=== PATIENT | male | born 1990 | race Caucasian/White ===

== ENCOUNTER 2018-09-02 12:31 | Emergency (ER) | payer OTHER ==
[2018-09-02] MEDS ORDERED: TDAP ADULT 0.5 ML INJ (BOOSTRIX) IM ONE (14:30)
[2018-09-02] MEDS ORDERED: SKIN ADHESIVE (DERMABOND) 1 EACH TP ONE (14:43)
--- NOTE | 2018-09-02 14:48 | EDPHY ---
H & P Time Seen by Provider: 09/02/18 13:30 HPI/ROS: CHIEF COMPLAINT: Left 2nd digit finger laceration HISTORY OF PRESENT ILLNESS: 27-year-old male here with laceration to the flexor aspect of the left 2nd digit. Denies any numbness or loss of range of motion. He there is no drug or alcohol use involved. ROS As detailed in HPI Smoking Status: Never smoked Physical Exam: General: Alert and oriented. Nontoxic appearing. No acute distress HEENT: Pupils PERRLA. No oral lesions. Cardiopulmonary: Regular rate and rhythm. No lower extremity edema Skin: [place] warm and dry. 2 cm laceration to the distal phalanx of the left 2nd digit. No joint or tendon involvement. Muscle skeletal: Moving all 4 extremities. Equal strength in upper extremities and lower extremities. Ambulatory. Constitutional: Initial Vital Signs Temperature (C) 36.4 C 09/02/18 12:55 Heart Rate 86 09/02/18 12:55 Respiratory Rate 16 09/02/18 12:55 Blood Pressure 132/93 H 09/02/18 12:55 O2 Sat (%) 98 09/02/18 12:55 O2 Delivery Mode Room Air Allergies/Adverse Reactions: No Known Allergies Allergy (Unverified 09/02/18 12:57) Home Medications: Medication Instructions Recorded NK [No Known Home Meds] 09/02/18 Medical Decision Making Procedures: Procedure: Laceration repair. Verbal consent was obtained from the patient. The 1.5 cml aceration on the left 2nd digit was anesthetized in the usual fashion. The wound was irrigated, draped and explored to its base with a gloved finger. There were no deep structures involved. No tendon injury was identified. The wound was repaired with 4 5.0 horizontal mattress. The wound repair was well approximated. The procedure was performed by myself. ED Course/Re-evaluation: Laceration As detailed below. The wound was well approximated. No evidence of foreign body, joint involvement, uncontrolled bleeding, ligamentous injury. - Data Points Medications Given: Discontinued Medications Diphtheria/Tetanus/Acell Pertussis (Boostrix) 0.5 ml IM .ONCE ONE Stop: 09/02/18 14:31 Last Admin: 09/02/18 14:55 Dose: 0.5 ml Departure - Departure Disposition: Home, Routine, Self-Care Clinical Impression: Finger laceration Condition: Good Instructions: Laceration (ED) Additional Instructions: Please see her work comp doctor in 2 days for wound check. Follow up in 1 week for suture removal. Por favor loyda a al medico de compensaciones de los trabajadores para un chequeo de la herida. Seguimiento en remedios semana para remover las suturas. Referrals: NONE *PRIMARY CARE P,. [Primary Care Provider] - As per Instructions Print Language: Italian
[2018-09-02 14:59] VITALS: BP 112/78
== END 2018-09-02 14:59 | disposition home or self-care (01) ==
PROC: 0HQGXZZ Repair Left Hand Skin, External Approach (ICD-10-PCS; principal; 2018-09-02)
DX: S61.211A Laceration without foreign body of left index finger without damage to nail, initial encounter (principal); W26.8XXA Contact with other sharp object(s), not elsewhere classified, initial encounter; Y99.0 Civilian activity done for income or pay; Z23 Encounter for immunization